=== PATIENT | male | born 1980 | race Caucasian/White ===

== ENCOUNTER 2023-11-10 17:35 | Emergency (ER) | payer OTHER ==
[~2023-11-10] VITALS: Ht 175.3 cm; Wt 97.7 kg
[2023-11-10 18:49] LABS: BASOPHILS % (AUTO) 0.4 % (0-1); EOSINOPHILS % (AUTO) 0.1 % (0-6); HEMATOCRIT 36.1 % (42.0-52.0); HEMOGLOBIN 12.5 g/dl (14.0-17.9); LYMPHOCYTES # (AUTO) 0.9 X10'3 (1.1-4.8); LYMPHOCYTES % (AUTO) 13.2 % (21-51); MEAN CORPUSCULAR HEMOGLOBIN 40.4 PG (27.0-31.0); MEAN CORPUSCULAR HGB CONC 34.6 g/dL (33.0-36.5); MEAN CORPUSCULAR VOLUME 116.6 FL (78-98); MEAN PLATELET VOLUME 7.6 FL (7.4-10.4); MONOCYTES # (AUTO) 0.4 X10'3 (0-0.9); MONOCYTES % (AUTO) 5.6 % (2-12); NEUTROPHILS # (AUTO) 5.3 X10'3 (1.8-7.7); NEUTROPHILS % (AUTO) 80.7 % (42-75); PLATELET COUNT 84 X10'3 (140-440); RED BLOOD COUNT 3.09 X10'6 (4.70-6.10); RED CELL DISTRIBUTION WIDTH 16.4 % (11.5-14.5); WHITE BLOOD COUNT 6.6 X10'3 (4.5-11.0)
[2023-11-10 19:01] LABS: ALANINE AMINOTRANSFERASE 41 U/L (12-78); ALBUMIN 3.9 G/DL (3.4-5.0); ALKALINE PHOSPHATASE 101 IU/L (46-116); ANION GAP 29 (8-16); ASPARTATE AMINO TRANSFERASE 114 U/L (10-37); BILIRUBIN,TOTAL 3.5 MG/DL (0.1-1.0); BLOOD UREA NITROGEN 16 MG/DL (7-18); BUN/CREATININE RATIO 14.5 (10.0-20.0); CALCIUM 9.7 MG/DL (8.5-10.1); CHLORIDE 87 MMOL/L (99-107); GLUCOSE 136 MG/DL (70-104); POTASSIUM 3.3 MMOL/L (3.5-5.1); SODIUM 132 MMOL/L (135-145); TOTAL CARBON DIOXIDE 16.2 MMOL/L (24-32); TOTAL PROTEIN 7.9 G/DL (6.4-8.2); eCRCL 87 ML/MIN; eGFR 73 ML/MIN
[2023-11-10 19:02] LABS: ETHANOL 64 MG/DL (<10); LIPASE 357 U/L (16-77); MAGNESIUM 1.4 MG/DL (1.5-2.4)
[2023-11-10 19:06] LABS: ACETAMINOPHEN < 2.0 UG/ML (10-30)
[2023-11-10 20:46] LABS: PLATELET ESTIMATE DECREASED
[2023-11-10 20:47] LABS: ANISOCYTOSIS 1+; STOMATOCYTES FEW; TEAR DROP CELLS 1+
[2023-11-11] MEDS ORDERED: ALLO100T PO (00:37)
[2023-11-11] MEDS ORDERED: diazepam inj 5 MG/ML inj. IV ONE (02:05)
[2023-11-11] MEDS ORDERED: normal saline 1000ml 1,000 ML IV ONE (02:05)
[2023-11-11] MEDS ORDERED: ketorolac tromethamine 15mg/ml inj. IV ONE (02:05)
[2023-11-11] MEDS ORDERED: diazepam inj 5 MG/ML inj. ONE (02:14)
[2023-11-11] MEDS ORDERED: ketorolac tromethamine 15mg/ml inj. ONE (02:15)
[2023-11-11 05:28] VITALS: BP 134/99; PULSE 122; RESP 17; TEMP 98.5; O2SAT 97
[2023-11-11] MEDS ORDERED: IBUP-1984 PO (05:37)
[2023-11-11] MEDS ORDERED: METH4TAB81 PO (05:37)
[2023-11-11] MEDS ORDERED: LORA-269 PO (05:37)
== END 2023-11-11 05:58 | disposition home or self-care (01) ==
LOC: ER 17:37
DX: M54.59 Other low back pain (principal); F10.239 Alcohol dependence with withdrawal, unspecified; M54.30 Sciatica, unspecified side
CPT/HCPCS: 36415; 72131; 80053; 80320; 80329; 83690; 83735; 85008; 85025; 96361; 96374; 96375; 99285; J1885; J3360; J7030; 93005

== ENCOUNTER 2023-11-20 10:23 | Emergency (ER) | payer OTHER ==
[~2023-11-20] VITALS: Ht 175.3 cm; Wt 111.0 kg
[~2023-11-20 10:23] MED LIST: ALLO100T PO; IBUP-1984 PO; LORA-269 PO; METH4TAB81 PO
[2023-11-20 11:04] VITALS: BP 127/73; PULSE 122; RESP 18; TEMP 97.9; O2SAT 99
== END 2023-11-20 15:39 | disposition home or self-care (01) ==
LOC: ER 10:23
DX: M54.50 Low back pain, unspecified (principal)
CPT/HCPCS: 72148; 99284

== ENCOUNTER 2024-11-12 08:24 | Outpatient (CLI) | payer OTHER ==
[~2024-11-12 08:24] MED LIST changes: -ALLO100T PO; -IBUP-1984 PO
[2024-11-12] MEDS ORDERED: GADOTERATE MEGLUMINE 7.5 MMOL/15 ML VIAL IV ONE (17:01)
== END 2024-11-12 23:59 | disposition home or self-care (01) ==
LOC: MRI 08:24
PROVIDERS: ATTEND Psychiatry & Neurology Neurology
DX: S39.92XA Unspecified injury of lower back, initial encounter (principal); S93.402D Sprain of unspecified ligament of left ankle, subsequent encounter; M47.814 Spondylosis without myelopathy or radiculopathy, thoracic region; M50.23 Other cervical disc displacement, cervicothoracic region; M48.03 Spinal stenosis, cervicothoracic region; M54.50 Low back pain, unspecified; X58.XXXD Exposure to other specified factors, subsequent encounter; X58.XXXA Exposure to other specified factors, initial encounter; Y93.89 Activity, other specified; Y92.89 Other specified places as the place of occurrence of the external cause; Y99.8 Other external cause status
CPT/HCPCS: 72156; 72157; A9575